=== PATIENT | female | born 1960 | race Caucasian/White ===

== ENCOUNTER 2024-04-26 14:41 | Outpatient (CLI) | payer OTHER | END 2024-04-26 14:42 | disposition home or self-care (01) | LOC: CSHMAMMO 14:41 | PROVIDERS: ATTEND Student in an Organized Health Care Education/Training Program | DX: Z12.31 Encounter for screening mammogram for malignant neoplasm of breast (principal); Z98.82 Breast implant status; Z85.41 Personal history of malignant neoplasm of cervix uteri | CPT/HCPCS: 77063; 77067 ==

== ENCOUNTER 2025-01-21 16:07 | Outpatient (CLI) | payer OTHER | END 2025-01-21 16:08 | disposition home or self-care (01) | LOC: CSHRAD 16:07 | PROVIDERS: ATTEND Internal Medicine | DX: M79.671 Pain in right foot (principal) ==